=== PATIENT | female | born 1950 | race Caucasian/White ===

== ENCOUNTER 2016-10-15 09:31 | Emergency (ER) | payer SELFPAY ==
[2016-10-15] MEDS ORDERED: ASPIRIN 325 MG TABLET PO ONE (10:20)
[2016-10-15] MEDS ORDERED: ONDANSETRON HCL INJ/PF 4 MG/2 ML SDV IV ONE (10:20)
[2016-10-15] MEDS ORDERED: OXYCODONE-ACETAMINOPHEN 5-325 MG TABLET PO ONE (10:20)
--- NOTE | 2016-10-15 10:20 | ER Document Report ---
ED Medical Screen (RME) - General Mode of Arrival: Wheelchair Information source: Patient, Relative - TRAVEL OUTSIDE OF THE [place] IN LAST 30 DAYS: No - HPI Patient complains to provider of: RUQ abdominal pain Associated Symptoms: Other - see notes above Exacerbated by: denies: Food - Related Data Smoking: Other - former smoker Frequency of alcohol use: None Drug Abuse: Marijuana <LUDY WILLAMS - Last Filed: 10/15/16 10:32> <NOLBERTO BLAKELY - Last Filed: 10/15/16 11:58> - General Chief Complaint: Upper Abdominal Pain Stated Complaint: FLANK PAIN Notes: 65 year old female with history of cholelithiasis, [place], and coronary stents x2 ( February 2016) presents to the ED accompanied by her who states that the patient has been complaining of nausea and vomiting that started this morning and RUQ abdominal pain that has been present "for a while". Patient explains that she has been 'sick like this for years.' Patient had a small meal this morning with her medications and does not report any exacerbation of pain. Patient denies fever. Renuka Bailey NP [facility] Electric Meter Repairer: Dr. Sidhu (LUDY WILLAMS) - Related Data Allergies/Adverse Reactions: No Known Allergies Allergy (Verified 10/15/16 09:43) Past Medical History - General Information source: Patient, Relative - Social History Cigarette use (# per day): No - former Chew tobacco use (# tins/day): No Frequency of alcohol use: None Drug Abuse: Marijuana Family history: Reviewed & Not Pertinent - Past Medical History Cardiac Medical History: Reports: Hx Heart Attack, Hx Hypertension Renal/ Medical History: Denies: Hx Peritoneal Dialysis GI Medical History: Reports: Other - Cholelithiasis Psychiatric Medical History: Reports: Hx Anxiety, Hx Depression Past Surgical History: Reports: Hx Coronary Stent - x2 Feb 2016 <LUDY WILLAMS - Last Filed: 10/15/16 10:32> Review of Systems - Review of Systems Constitutional: No symptoms reported. denies: Fever EENT: No symptoms reported Cardiovascular: No symptoms reported Respiratory: No symptoms reported Gastrointestinal: See HPI, Abdominal pain - RUQ, Nausea, Vomiting Genitourinary: No symptoms reported Female Genitourinary: No symptoms reported Musculoskeletal: No symptoms reported Skin: No symptoms reported Hematologic/Lymphatic: No symptoms reported Neurological/Psychological: No symptoms reported -: Yes All other systems reviewed and negative <LUDY WILLAMS - Last Filed: 10/15/16 10:32> Physical Exam - General General appearance: Alert In distress: None - HEENT Extraocular movements intact: Yes - disconjugate gaze - Respiratory Respiratory status: No respiratory distress Breath sounds: Normal - Cardiovascular Rhythm: Regular Heart sounds: Normal auscultation Murmur: No Friction rub: No Gallop: None auscultated - Abdominal Inspection: Normal Distension: No distension Bowel sounds: Normal Tenderness: Other - Mild discomfort with palpation to the RUQ. No masses, guarding, rebound, or rigidity.. No: Guarding, Rebound <LUDY WILLAMS - Last Filed: 10/15/16 10:32> Course - Laboratory Result Diagrams: 10/15/16 11:33 10/15/16 11:33 <NOLBERTO BLAKELY - Last Filed: 10/15/16 11:58> - Vital Signs Vital signs: Temp Pulse Resp BP Pulse Ox 96.3 F L 69 14 150/79 H 93 10/15/16 10:31 10/15/16 09:44 10/15/16 09:44 10/15/16 09:44 10/15/16 09:44 - Laboratory Laboratory results interpreted by me: 10/15/16 11:33 WBC 13.7 H RDW 15.4 H Absolute Neutrophils 10.4 H Scribe Documentation - Scribe Written by Kalpana:: Kalpana Hooper, 10/15/2016 1047 acting as scribe for :: Twila <LUDY WILLAMS - Last Filed: 10/15/16 10:32>
--- NOTE | 2016-10-15 11:09 | EKG REPORT ---
SEVERITY:- ABNORMAL ECG - SINUS RHYTHM PROBABLE LATERAL INFARCT, OLD ANTERIOR INFARCT, AGE INDETERMINATE BORDERLINE PROLONGED QT INTERVAL : Confirmed by: Arely Lund 15-Oct-2016 11:08:29
--- NOTE | 2016-10-15 11:12 | RADIOLOGY REPORT (SQ) ---
EXAM DESCRIPTION: CHEST SINGLE VIEW COMPLETED DATE/TIME: 10/15/2016 11:01 am REASON FOR STUDY: RUQ abd pain, h/o STEMI COMPARISON: 03/01/2016 EXAM PARAMETERS: NUMBER OF VIEWS: One view. TECHNIQUE: Single frontal radiographic view of the chest acquired. RADIATION DOSE: NA LIMITATIONS: None. FINDINGS: LUNGS AND PLEURA: No opacities, masses or pneumothorax. No pleural effusion. MEDIASTINUM AND HILAR STRUCTURES: No masses. Contour normal. Descending thoracic aorta is tortuous, unchanged. HEART AND VASCULAR STRUCTURES: Heart normal in size. Normal vasculature. BONES: No acute findings. HARDWARE: None in the chest. OTHER: No other significant finding. IMPRESSION: NO ACUTE RADIOGRAPHIC FINDING IN THE CHEST. TECHNICAL DOCUMENTATION: JOB ID: [id number]
[2016-10-15 11:55] LABS: ABSOLUTE BASOPHILS # (AUTO) 0.1 10^3/uL (0.0-0.2); ABSOLUTE EOSINOPHILS # (AUTO) 0.2 10^3/uL (0.0-0.6); ABSOLUTE LYMPHOCYTES (AUTO) 2.4 10^3/uL (0.5-4.7); ABSOLUTE MONOCYTES (AUTO) 0.7 10^3/uL (0.1-1.4); ABSOLUTE NEUT (AUTO) 10.4 10^3/uL (1.7-8.2); BASOPHILS % (AUTO) 0.5 % (0-2); EOSINOPHILS % (AUTO) 1.5 % (0-6); HEMATOCRIT 45.7 % (36.0-47.0); HGB HCT DIFFERENCE -0.7; LYMPHOCYTES % (AUTO) 17.5 % (13-45); MEAN CORPUSCULAR HEMOGLOBIN 30.6 pg (27.0-33.4); MEAN CORPUSCULAR HGB CONC 32.9 g/dL (32.0-36.0); MEAN CORPUSCULAR VOLUME 93 fl (80-97); MONOCYTES % (AUTO) 5.1 % (3-13); RED BLOOD COUNT 4.91 10^6/uL (3.72-5.28); RED CELL DISTRIBUTION WIDTH 15.4 % (11.5-14.0); SEGMENTED NEUTROPHILS % (AUTO) 75.4 % (42-78); WHITE BLOOD COUNT 13.7 10^3/uL (4.0-10.5)
[2016-10-15 12:10] LABS: ALANINE AMINOTRANSFERASE 26 U/L (9-52); ALBUMIN 4.7 g/dL (3.5-5.0); ALKALINE PHOSPHATASE 161 U/L (38-126); ANION GAP 14 (5-19); ASPARTATE AMINO TRANSFERASE 27 U/L (14-36); BILIRUBIN,DIRECT 0.4 mg/dL (0.0-0.4); BILIRUBIN,TOTAL 0.8 mg/dL (0.2-1.3); BLOOD UREA NITROGEN 13 mg/dL (7-20); CALCIUM 9.6 mg/dL (8.4-10.2); CARBON DIOXIDE 25 mmol/L (22-30); CHLORIDE 103 mmol/L (98-107); CREATINE KINASE 115 U/L (30-135); CREATININE RESULT 1.37 mg/dL (0.52-1.25); GLUCOSE 156 mg/dL (75-110); LIPASE 52.3 U/L (23-300); POTASSIUM 5.1 mmol/L (3.6-5.0); SODIUM 142.4 mmol/L (137-145)
--- NOTE | 2016-10-15 12:18 | RADIOLOGY REPORT (SQ) ---
EXAM DESCRIPTION: U/S ABDOMEN LIMITED W/O DOP COMPLETED DATE/TIME: 10/15/2016 11:58 am REASON FOR STUDY: RUQ abd pain COMPARISON: None. TECHNIQUE: Dynamic and static grayscale images acquired of the abdomen and recorded on PACS. Additio nal selected color Doppler and spectral images recorded. LIMITATIONS: None. FINDINGS: PANCREAS: No masses. Visualized pancreatic duct normal caliber. LIVER: 17.2 cm. Normal echotexture. LIVER VASCULATURE: Normal directional flow of the main portal vein and hepatic veins. GALLBLADDER: Gallstones. No pericholecystic fluid. No wall thickening. ULTRASOUND-DETECTED PÉREZ'S SIGN: Negative. INTRAHEPATIC DUCTS AND COMMON DUCT: The common bile duct is mildly enlarged at 7 mm. There is no int rahepatic ductal dilatation. INFERIOR VENA CAVA: Normal flow. AORTA: No aneurysm. The tail was obscured by gas. RIGHT KIDNEY: 8.7 cm. Normal echogenicity. No solid or suspicious masses. No hydronephrosis. No calc ifications. PERITONEAL AND RIGHT PLEURAL SPACE: No ascites or effusions. OTHER: No other significant findings. IMPRESSION: 1. Cholelithiasis with no evidence of cholecystitis. 2. There is mild dilatation of the common bile duct. TECHNICAL DOCUMENTATION: JOB ID: [id number] [employer]- All Rights Reserved
[2016-10-15 12:22] LABS: CREATINE KINASE MB 0.38 ng/mL (<4.55); TROPONIN I 0.03 ng/mL
[2016-10-15] MEDS ORDERED: IPRATROPIUM/ALBUTEROL 0.5-2.5 MG/3 ML AMPUL NEB ONE ×2 (12:39→13:05)
[2016-10-15] MEDS ORDERED: METHYLPREDNISOLONE INJ 125 MG/2 ML SDV ONE (13:05)
[2016-10-15] MEDS ORDERED: LORAZEPAM INJ 2 MG/1 ML VIAL IV ONE (13:15)
[2016-10-15] MEDS ORDERED: HEPARIN SOD (PORCINE) 1,000 UNIT/ML 10 ML VIAL ONE (14:00)
[2016-10-15] MEDS ORDERED: HEPARIN SODIUM,PORCINE/D5W 250 ML IV PRN (14:04)
[2016-10-15] MEDS ORDERED: HEPARIN SOD (PORCINE) 1,000 UNIT/ML 10 ML VIAL IV PRN (14:04)
--- NOTE | 2016-10-15 14:13 | ER Document Report ---
ED General - General Chief Complaint: Upper Abdominal Pain Stated Complaint: FLANK PAIN Time Seen by Provider: 10/15/16 10:12 Mode of Arrival: Wheelchair Notes: 65 year-old female presents emergency department complaining of right upper quadrant aching with associated nausea and vomiting that started this morning. Patient states that yesterday she was pain-free, but this morning had gradual onset of the right upper quadrant constant ache with intermittent fleeting cramping after eating toast. She states she threw up a couple times unsure of the number called her requesting comes emergency department. Denies fevers, chills, CP, SOB, GIBSON, heartburn. Admits that she does have a history of gallstones which diagnosed about 10 years ago but patient was never able to follow-up with primary care surgery due to lack of insurance. That her symptoms are consistent with her history of gallbladder disease. Past medical history significant for [place] in February 2016 requiring 1 coronary stent in the middle of the LAD, hypertension and hyperlipidemia. Patient denies any other surgeries. History of tobacco use 15 years ago. Denies any alcohol use. Admits to daily marijuana use. Does not have a primary care provider. Her business services director is Renuka Bailey with [employer]. Follows with Dr. Boothe for psychiatry TRAVEL OUTSIDE OF THE [place] IN LAST 30 DAYS: No - Related Data Allergies/Adverse Reactions: No Known Allergies Allergy (Verified 10/15/16 09:43) Past Medical History - General Information source: Patient, Relative - Social History Smoking Status: Never Smoker Cigarette use (# per day): No - former Chew tobacco use (# tins/day): No Frequency of alcohol use: None Drug Abuse: Marijuana Family History: Reviewed & Not Pertinent Patient has suicidal ideation: No Patient has homicidal ideation: No - Past Medical History Cardiac Medical History: Reports: Hx Heart Attack, Hx Hypertension Renal/ Medical History: Denies: Hx Peritoneal Dialysis GI Medical History: Reports: Other - Cholelithiasis Psychiatric Medical History: Reports: Hx Anxiety, Hx Depression Past Surgical History: Reports: Hx Coronary Stent - x2 Feb 2016 Review of Systems - Review of Systems Constitutional: No symptoms reported Cardiovascular: No symptoms reported. denies: Chest pain, Palpitations, Orthopnea, Dyspnea, Syncope, Dizziness, Lightheaded Respiratory: No symptoms reported Gastrointestinal: Other - abdominal discomfort "pressure" -: Yes All other systems reviewed and negative Physical Exam - Vital signs Vitals: Pulse Resp BP Pulse Ox 69 14 150/79 H 93 10/15/16 09:44 10/15/16 09:44 10/15/16 09:44 10/15/16 09:44 - Notes Notes: PHYSICAL EXAM GENERAL: Alert, interacts well. HEAD: Normocephalic, atraumatic. EYES: Pupils equal, round, and reactive to light. Extraocular movements intact. ENT: Oral mucosa moist, tongue midline. NECK: Full range of motion. Supple. Trachea midline. LUNGS: Clear to auscultation bilaterally, no wheezes, rales, or rhonchi. No respiratory distress. HEART: Regular rate and rhythm. No murmurs, gallops, or rubs. ABDOMEN: Soft, nondistended, minimal tenderness to palpation of the right upper quadrant. No guarding, rebound, or rigidity.. Bowel sounds present in all 4 quadrants. EXTREMITIES: Moves all 4 extremities spontaneously. No edema, radial and dorsalis pedis pulses 2/4 bilaterally. No cyanosis. NEUROLOGICAL: Alert and oriented x4. Normal speech. PSYCH: Normal affect, normal mood. SKIN: Warm, dry, normal turgor. No rashes or lesions noted. Course - Re-evaluation Re-evalutation: 10/15/16 19:56 Patient is a 65-year-old female who was hemodynamic stable, no acute distress and afebrile upon initial evaluation. Initial workup was geared for evaluation for right upper quadrant pain to rule out for any cause of GERD, cholecystitis. Upon return of all these results it was noted that patient's troponin was 0.030 which is still lower than upper reference range. Plan was to keep patient for repeat troponin. At this time patient and stated that she is having difficulty breathing and felt like she was having an anxiety attack. Patient states that she typically takes 3 mg of Xanax a day, 1 mg 3 times daily and feels like she is having an anxiety attack and would like medication to help with that. She states that she does have a history of asthma. Patient was given Solu-Medrol, 2 duo nebs without improvement in her symptoms. At this time I had requested consult with supervising physician Dr. Gera Samano. please see Dr. Samano's note for rest of her course as he assumed her care - Vital Signs Vital signs: Temp Pulse Resp BP Pulse Ox 99.6 F 69 14 128/80 H 99 10/15/16 18:50 10/15/16 09:44 10/15/16 18:50 10/15/16 18:50 10/15/16 18:50 - Laboratory Result Diagrams: 10/15/16 11:33 10/15/16 11:33 Laboratory results interpreted by me: 10/15/16 10/15/16 10/15/16 11:33 11:33 14:08 WBC 13.7 H RDW 15.4 H Absolute Neutrophils 10.4 H Carbonic Acid 2.32 H ABG pH 7.01 L* ABG pCO2 77.0 H* ABG pO2 505.5 H ABG HCO3 19.1 L ABG O2 Saturation 99.8 H Potassium 5.1 H Creatinine 1.37 H Est GFR ( Amer) 47 L Est GFR (Non-Af Amer) 39 L Glucose 156 H Alkaline Phosphatase 161 H Total Protein 9.0 H 10/15/16 16:40 WBC RDW Absolute Neutrophils Carbonic Acid ABG pH 7.31 L ABG pCO2 ABG pO2 498.3 H ABG HCO3 ABG O2 Saturation 99.9 H Potassium Creatinine Est GFR ( Amer) Est GFR (Non-Af Amer) Glucose Alkaline Phosphatase Total Protein Discharge - Discharge Clinical Impression: Gallstones, Pleural effusion Respiratory failure Qualifiers: Chronicity: acute Respiratory failure complication: hypercapnia Qualified Code( s): J96.02 - Acute respiratory failure with hypercapnia Vomiting Qualifiers: Vomiting type: unspecified Vomiting Intractability: non-intractable Nausea presence: unspecified Qualified Code(s): R11.10 - Vomiting, unspecified Condition: Critical Disposition: [facility]
--- NOTE | 2016-10-15 14:14 | ER Document Report ---
ED General - General Chief Complaint: Upper Abdominal Pain Stated Complaint: FLANK PAIN Time Seen by Provider: 10/15/16 10:12 Mode of Arrival: Wheelchair Information source: Relative Notes: I was asked by the PALMA for consultation on this patient. Patient presented with some epigastric pain, nausea and vomiting. Patient supposedly had a history of gallstones. Patient also had a myocardial infarction in February of last year requiring stents. There is no complaint of chest pain or shortness of breath supposedly when she arrived. When I was asked to see the patient she had artery had laboratory values, x-ray of the chest, EKG, and a right upper quadrant ultrasound as recorded. I was called with a limp secondary to the patient becoming short of breath. There was no complaints of chest pain. Patient had been provided oxygen as well as nebulizer. TRAVEL OUTSIDE OF THE [place] IN LAST 30 DAYS: No - HPI Onset: Other - See above Onset/Duration: Sudden Quality of pain: Achy - abdomen according to mid-level Severity: Mild Pain Level: Denies Associated symptoms: Other - See above Exacerbated by: Denies Relieved by: Denies Similar symptoms previously: Yes Recently seen / treated by doctor: Yes - Related Data Allergies/Adverse Reactions: No Known Allergies Allergy (Verified 10/15/16 09:43) Past Medical History - General Information source: Patient, Relative - Social History Smoking Status: Never Smoker Cigarette use (# per day): No - former Chew tobacco use (# tins/day): No Smoking Education Provided: No Frequency of alcohol use: None Drug Abuse: Marijuana Family History: Reviewed & Not Pertinent Patient has suicidal ideation: No Patient has homicidal ideation: No - Past Medical History Cardiac Medical History: Reports: Hx Heart Attack, Hx Hypertension Renal/ Medical History: Denies: Hx Peritoneal Dialysis GI Medical History: Reports: Other - Cholelithiasis Psychiatric Medical History: Reports: Hx Anxiety, Hx Depression Past Surgical History: Reports: Hx Coronary Stent - x2 Feb 2016 Review of Systems - Review of Systems -: Yes ROS unobtainable due to patient's medical condition - On my presentation Physical Exam - Vital signs Vitals: Pulse Resp BP Pulse Ox 69 14 150/79 H 93 10/15/16 09:44 10/15/16 09:44 10/15/16 09:44 10/15/16 09:44 Notes: Reviewed vital signs and nursing note as charted by RN. CONSTITUTIONAL: Patient is lethargic, not answering questions, with a decreased respiratory rate. HEAD: Normocephalic; atraumatic EYES: PERRL ENT: Moist mucous membranes NECK: Supple CARD: Regular rate and rhythm; no murmurs, no clicks, no rubs, no gallops; symmetric distal pulses RESP: Agonal respirations. ABD/GI: Normal bowel sounds; non-distended EXT: no edema SKIN: Normal color for age and race; warm; dry; good turgor; capillary refill < 2 seconds; no acute lesions noted NEURO: Unresponsive. GCS 5. Course - Re-evaluation Re-evalutation: Evaluating the patient, I believe that the patient required rapid airway protection. Patient satting 92% with bagging immediately prior to intubation. Patient was intubated on initial attempt without complications. After intubation the patient's heart rate went to 140. Patient did have a palpable pulse. Blood pressure was stable at 102/60. Repeat EKG showed wide complex tachycardia consistent with ventricular tachycardia. Pads were placed on the patient and we performed synchronized cardioversion at 200 J. Patient's repeat EKG showed a heart rate of 119, sinus tachycardia, with a now a narrow QRS. Amiodarone bolus and drip has been provided. Given my concern about ACS or pulmonary embolism, given the rapid decline with shortness of breath clear, heparin bolus has been provided. Perform a central line for better access. 10/15/16 14:48 Central line placed without complications. Vital signs are stable. I had a discussion again with the family he denies any recent fever, chest pain, shortness of breath, or cough above baseline. Initial ABG showed pH of 7 with a PCO2 of 70. I have provided an amp of bicarbonate. We have alerted respiratory therapy to possibly increase the respiratory rate or tidal volume. CT head and chest are pending. Heparin drip is infusing. 10/15/16 15:18 Portable x-ray of the chest as recorded. I have provided broad-spectrum antibiotics as well as blood cultures. CT of the chest is pending. 10/15/16 16:57 CT scan of the chest and head showed no acute abnormalities. Repeat EKG shows no change from initial presentation of the EKG. Heart rate is 74, normal sinus rhythm, normal axis, no obvious ST elevation or depression, inverted T-wave in leads I and aVL. 10/15/16 16:58 Arterial blood gas has almost completely normalized - Vital Signs Vital signs: Temp Pulse Resp BP Pulse Ox 96.3 F L 69 14 117/67 96 10/15/16 10:31 10/15/16 09:44 10/15/16 09:44 10/15/16 15:16 10/15/16 15:16 - Laboratory Result Diagrams: 10/15/16 11:33 10/15/16 11:33 Laboratory results interpreted by me: 10/15/16 10/15/16 10/15/16 11:33 11:33 14:08 WBC 13.7 H RDW 15.4 H Absolute Neutrophils 10.4 H Carbonic Acid 2.32 H ABG pH 7.01 L* ABG pCO2 77.0 H* ABG pO2 505.5 H ABG HCO3 19.1 L ABG O2 Saturation 99.8 H Potassium 5.1 H Creatinine 1.37 H Est GFR ( Amer) 47 L Est GFR (Non-Af Amer) 39 L Glucose 156 H Alkaline Phosphatase 161 H Total Protein 9.0 H 10/15/16 16:40 WBC RDW Absolute Neutrophils Carbonic Acid ABG pH 7.31 L ABG pCO2 ABG pO2 498.3 H ABG HCO3 ABG O2 Saturation 99.9 H Potassium Creatinine Est GFR ( Amer) Est GFR (Non-Af Amer) Glucose Alkaline Phosphatase Total Protein Procedures - Central Line Right Internal jugular Consent obtained: Yes - From family Central line pre-insertion: Chloraprep applied Central line lumen type: Triple Ultrasound guided: Yes Line secured with sutures: Yes Central line post-insertion: Blood return from lumens, Biopatch applied, Sutured , Sterile dressing applied, Position confirmed w/ CXR Number of attempts: 1 Complications: No - Intubation Orotracheal Airway evaluation: Normal anatomy Mallampati Classification: Class 1 Medications: Etomidate, Other - Rocuronium Intubation method: Orotracheal Blade type: Slick Blade size: 4 Equipment used: Glidescope ETT size: 7.5 ETT secured at: Teeth Breath Sounds after Intubation: Equal End tidal CO2 confirmed: Yes Ventilator settings: CMV Post Intubation Xray: Yes Intubation Complications: No complications Critical Care Note - Critical Care Note Total time excluding time spent on procedures (mins): 75 Discharge - Discharge Clinical Impression: Multiple gallstones, Pleural effusion Respiratory failure Qualifiers: Chronicity: acute Respiratory failure complication: hypercapnia Qualified Code( s): J96.02 - Acute respiratory failure with hypercapnia Vomiting Qualifiers: Vomiting type: unspecified Vomiting Intractability: non-intractable Nausea presence: unspecified Qualified Code(s): R11.10 - Vomiting, unspecified Condition: Critical Disposition: [facility]
[2016-10-15 14:24] LABS: ARTERIAL BLOOD BASE EXCESS -13.4 mmol/L; ARTERIAL BLOOD O2 SATURATION 99.8 % (94-98)
[2016-10-15 14:31] LABS: PROTHROMBIN TIME 12.5 SEC (11.4-15.4)
[2016-10-15] MEDS ORDERED: SODIUM BICARBONATE 8.4% INJ 50 MEQ/50 ML DISP.SYRIN IV ONE (14:48)
[2016-10-15] MEDS ORDERED: SODIUM BICARBONATE 8.4% INJ 50 MEQ/50 ML DISP.SYRIN ONE (14:48)
[2016-10-15] MEDS ORDERED: ROCURONIUM BROMIDE INJ 50 MG/5 ML VIAL IV ONE (14:51)
--- NOTE | 2016-10-15 15:12 | RADIOLOGY REPORT (SQ) ---
EXAM DESCRIPTION: CHEST SINGLE VIEW COMPLETED DATE/TIME: 10/15/2016 3:02 pm REASON FOR STUDY: tube placement COMPARISON: 10/15/2016 EXAM PARAMETERS: NUMBER OF VIEWS: One view. TECHNIQUE: Single frontal radiographic view of the chest acquired. RADIATION DOSE: NA LIMITATIONS: None. FINDINGS: LUNGS AND PLEURA: Ill-defined opacification is seen in the left lung base. MEDIASTINUM AND HILAR STRUCTURES: No masses. Contour normal. HEART AND VASCULAR STRUCTURES: Heart normal in size. Normal vasculature. BONES: No acute findings. HARDWARE: A right internal jugular catheter has its tip near the right atrium. An endotracheal tube is present with the tip of the tube 4 cm above the eliel. OTHER: No other significant finding. IMPRESSION: 1. Possible left lower lobe pneumonia. 2. Catheter and endotracheal tube placement as described. TECHNICAL DOCUMENTATION: JOB ID: [id number]
[2016-10-15] MEDS ORDERED: VANCOMYCIN HCL INJ 1000 MG VIAL IV ONE ×2 (15:16→19:30)
[2016-10-15] MEDS ORDERED: PIPERACILLIN/TAZOBACTAM 3.375 GM VIAL IV ONE (15:16)
--- NOTE | 2016-10-15 16:17 | RADIOLOGY REPORT (SQ) ---
EXAM DESCRIPTION: CT HEAD WITHOUT COMPLETED DATE/TIME: 10/15/2016 4:06 pm REASON FOR STUDY: Unresponsive, AMS COMPARISON: None. TECHNIQUE: Axial images acquired through the brain without intravenous contrast. Images reviewed wi th bone, brain and subdural windows. Images stored on PACS. All CT scanners at this facility use dose modulation, iterative reconstruction, and/or weight based d osing when appropriate to reduce radiation dose to as low as reasonably achievable (ALARA). [facility]: Dose Right [facility]: CareDose [facility]: Dose Right [facility]: Teradose 4D [facility]: [facility] RADIATION DOSE: 67.05 mGy. LIMITATIONS: None. FINDINGS: VENTRICLES: Normal size and contour. CEREBRUM: No masses. No hemorrhage. No midline shift. Normal chapa/white matter differentiation. N o evidence for acute infarction. CEREBELLUM: No masses. No hemorrhage. No alteration of density. No evidence for acute infarction. EXTRAAXIAL SPACES: No fluid collections. No masses. ORBITS AND GLOBE: No intra- or extraconal masses. Normal contour of globe without masses. CALVARIUM: No fracture. PARANASAL SINUSES: No fluid or mucosal thickening. SOFT TISSUES: No mass or hematoma. OTHER: No other significant finding. IMPRESSION: NORMAL BRAIN CT WITHOUT CONTRAST. TECHNICAL DOCUMENTATION: JOB ID: [id number] Quality ID # [id number]: Final reports with documentation of one or more dose reduction techniques (e.g., Au tomated exposure control, adjustment of the mA and/or kV according to patient size, use of iterative reconstruction technique) 2010 [employer]- All Rights Reserved
--- NOTE | 2016-10-15 16:26 | RADIOLOGY REPORT (SQ) ---
EXAM DESCRIPTION: CTA CHEST COMPLETED DATE/TIME: 10/15/2016 4:07 pm REASON FOR STUDY: 9, shortness of breath, intubation COMPARISON: None. TECHNIQUE: CT scan of the chest performed using helical scanning technique with dynamic intravenous contrast injection. Images reviewed with lung, soft tissue and bone windows. Reconstructed coronal and sagittal MPR images reviewed. Additional 3 dimensional post-processing performed to develop Maximal Intensity Projection images (MD P). All images stored on PACS. All CT scanners at this facility use dose modulation, iterative reconstruction, and/or weight based d osing when appropriate to reduce radiation dose to as low as reasonably achievable (ALARA). [facility]: Dose Right [facility]: CareDose [facility]: Dose Right [facility]: Teradose 4D [facility]: [employer] CONTRAST TYPE AND DOSE: contrast/concentration: Isovue 370.00 mg/ml; Total Contrast Delivered: 68.0 ml; Total Saline Delivered: 100.1 ml RENAL FUNCTION: Creatinine 1.4 BUN 13 RADIATION DOSE: 64.56 . LIMITATIONS: None. FINDINGS: LUNGS AND PLEURA: Irregular pleural thickening is seen in both hemithoraces. Small pleura l effusions are present. There is subsegmental atelectasis and pleural/parenchymal scarring in the l viktor bases. An infiltrate cannot be ruled out in the right lower lobe posteriorly AORTA AND GREAT VESSELS: No aneurysm or dissection. HEART: No pericardial effusion. PULMONARY ARTERIES: No emboli visualized in the main pulmonary arteries or the segmental branches. HILAR AND MEDIASTINAL STRUCTURES: No identified masses or abnormal nodes. HARDWARE: An endotracheal tube is present. An NG tube extends to the stomach UPPER ABDOMEN: No significant findings. Limited exam. THYROID AND OTHER SOFT TISSUES: No masses. No adenopathy. BONES: Bridging osteophytes are present in the thoracic spine. 3D MIPS: Confirm above findings. OTHER: No other significant finding. IMPRESSION: 1. There is no evidence of pulmonary embolus. 2. There is irregular pleural thickening seen in both hemithoraces. 3. There is pleural/parenchymal scarring in the lung bases. 4. There is subsegmental atelectasis in the lung bases. 5. Right lower lobe pneumonia cannot be ruled out. 6. There are small pleural effusions. TECHNICAL DOCUMENTATION: JOB ID: [id number] Quality ID # [id number]: Final reports with documentation of one or more dose reduction techniques (e.g., Au tomated exposure control, adjustment of the mA and/or kV according to patient size, use of iterative reconstruction technique) 2010 [employer]- All Rights Reserved
[2016-10-15 16:48] LABS: ARTERIAL BLOOD BASE EXCESS -4.7 mmol/L; ARTERIAL BLOOD O2 SATURATION 99.9 % (94-98)
[2016-10-15] MEDS ORDERED: PROPOFOL 100 ML IV ONE ×2 (20:14→22:32)
[2016-10-15 21:27] VITALS: BP 137/82
--- NOTE | 2016-10-16 08:27 | EKG REPORT ---
SEVERITY:- ABNORMAL ECG - SINUS RHYTHM ANTERIOR INFARCT, OLD PROLONGED QT INTERVAL : Confirmed by: Arely Lund 16-Oct-2016 08:26:50
--- NOTE | 2016-10-16 08:27 | EKG REPORT ---
SEVERITY:- ABNORMAL ECG - SINUS OR ECTOPIC ATRIAL TACHYCARDIA NONSPECIFIC INTRAVENTRICULAR CONDUCTION DELAY ANTERIOR INFARCT, AGE INDETERMINATE : Confirmed by: Arely Lund 16-Oct-2016 08:27:11
--- NOTE | 2016-10-16 08:29 | EKG REPORT ---
SEVERITY:- ABNORMAL ECG - SINUS RHYTHM ANTEROLATERAL INFARCT, AGE INDETERMINATE BORDERLINE PROLONGED QT INTERVAL : Confirmed by: Arely Lund 16-Oct-2016 08:29:12
--- NOTE | 2016-10-16 08:29 | EKG REPORT ---
SEVERITY:- ABNORMAL ECG - WIDE COMPLEX TACHYCARDIA NONSPECIFIC IVCD WITH LAD CONSIDER SINUS TACHYCARDIA VS A FLUTTER WITH 2:1 CONDUCTION WITH LBBB : Confirmed by: Arely Lund 16-Oct-2016 08:29:03
== END 2016-10-15 21:20 | disposition short-term general hospital (02) ==
LOC: ER 09:31
PROC: 0BH17EZ Insertion of Endotracheal Airway into Trachea, Via Natural or Artificial Opening (ICD-10-PCS; principal; 2016-10-15)
PROC: 05HM33Z Insertion of Infusion Device into Right Internal Jugular Vein, Percutaneous Approach (ICD-10-PCS; 2016-10-15)
DX: J96.02 Acute respiratory failure with hypercapnia (principal); R11.10 Vomiting, unspecified; J90 Pleural effusion, not elsewhere classified; K80.80 Other cholelithiasis without obstruction; R10.10 Upper abdominal pain, unspecified; R10.13 Epigastric pain; R11.2 Nausea with vomiting, unspecified; Z87.891 Personal history of nicotine dependence
CPT/HCPCS: 93005; 36415; 87040; 82553; 82803; 82550; 83690; 85025; 85610; 85730; 80053; 84484; 83605; 71010; 76705; 70450; 71275; 93010; 36600; 31500; 36571; C1751; J3490; J2704; J2930; J2060; J2405; J7620; J2543; 51702; 94640; 96365; 96366; 96368; 96375; 99291; 99292